=== PATIENT | male | born 1985 | race Two or more races ===

== ENCOUNTER 2022-03-28 13:02 | Emergency (ER) | payer MEDICAID, OTHER ==
[~2022-03-28] VITALS: Ht 175.3 cm; Wt 83.9 kg
[2022-03-28 14:01] VITALS: BP 117/88
[2022-03-28] MEDS: MORPHINE SULFATE INJECTION 2 MG/ML SYRG IM ONE (14:01)
[2022-03-28] MEDS: ONDANSETRON ODT 4 MG TAB PO ONE (14:02)
[2022-03-28] MEDS ORDERED: ACE3T PO (15:55)
[2022-03-28] MEDS ORDERED: CYCL-837 PO (15:55)
== END 2022-03-28 16:16 | disposition home or self-care (01) ==
LOC: ER 13:02
DX: S20.211A Contusion of right front wall of thorax, initial encounter (principal); V86.56XA Driver of dirt bike or motor/cross bike injured in nontraffic accident, initial encounter; Y93.89 Activity, other specified; Y92.89 Other specified places as the place of occurrence of the external cause; Y99.8 Other external cause status
CPT/HCPCS: 71101; 71250; 96372; 99284; J2270; Q0162